=== PATIENT | male | born 1970 | race Caucasian/White ===

== ENCOUNTER 2024-09-24 12:09 | Emergency (ER) | payer SELFPAY ==
--- NOTE | 2024-09-24 12:19 | PC.NURSE ---
12:19 Patient left [facility] due to insurance /payment issues.
== END 2024-09-24 12:19 | disposition left against medical advice (07) ==
DX: Z53.21 Procedure and treatment not carried out due to patient leaving prior to being seen by health care provider (principal)
CPT/HCPCS: 99199